=== PATIENT | female | born 1995 | race Two or more races ===

== ENCOUNTER 2018-09-13 05:30 | Emergency (ER) | payer OTHER ==
[~2018-09-13] VITALS: Ht 157.5 cm; Wt 112.2 kg
[~2018-09-13 05:30] MED LIST: CIPR500T4 PO; IBUP200C11 PO
[2018-09-13 05:32] VITALS: Ht 157.5 cm; Wt 112.2 kg
--- NOTE | 2018-09-13 06:06 | ERD ---
ER Documentation Chief Complaint Chief Complaint RIGHT EAR PAIN X1DAY HPI 23-year-old female, at EGA 9wk by LMP 07/11/18 presents to the emergency department, complaining of 1 day with severe right ear pain and back pain associ ated with fever and chills. The patient has not established care. She denies vaginal bleeding. ROS All systems reviewed and are negative except as per history of present illness. Medications Home Meds Active Scripts Acetaminophen* (Tylenol*) 325 Mg Tablet, 2 TAB PO Q6 PRN for PAIN AND OR ELEVATED TEMP, #20 TAB Prov:DIXON BROOKS MD 09/13/18 Amoxicillin* (Amoxicillin*) 500 Mg Cap, 2 CAP PO TID for 7 Days, CAP Prov:DIXON BROOKS MD 09/13/18 Ciprofloxacin Hcl* (Ciprofloxacin Hcl*) 500 Mg Tablet, 500 MG PO BID for 7 Days, TAB Prov:EMMA SHOEMAKER NP 12/23/14 Reported Medications Ibuprofen* (Advil*) 200 Mg Capsule, 200 MG PO Q6H PRN for PAIN, CAP 12/02/14 Allergies Allergies: Coded Allergies: No Known Allergy (Unverified , 12/23/14) PMhx/Soc History of Surgery: No Anesthesia Reaction: No Hx Neurological Disorder: No Hx Respiratory Disorders: No Hx Cardiac Disorders: No Hx Psychiatric Problems: No Hx Miscellaneous Medical Probl: No Hx Alcohol Use: No Hx Substance Use: No Hx Tobacco Use: No Physical Exam Vitals Vital Signs Date Temp Pulse Resp B/P (MAP) Pulse Ox O2 O2 Flow FiO2 Time Delivery Rate 09/13/18 99.9 93 19 116/61 98 05:32 (79) Physical Exam Const: Mild distress due to pain. Head: Atraumatic Eyes: Normal Conjunctiva ENT: Erythematous oropharynx, right ear with significant tympanic erythema, edema and retraction, with edema of the canal. Contralateral ear normal. Neck: Full range of motion. No meningismus. Resp: Clear to auscultation bilaterally Cardio: Regular rate and rhythm, no murmurs Abd: Soft, non tender, non distended. Normal bowel sounds Skin: No petechiae or rashes Back: No midline or flank tenderness Ext: No cyanosis, or edema Neur: Awake and alert Psych: Normal Mood and Affect Result Diagram: 09/13/18 0641 Results 24 hrs Laboratory Tests Test 09/13/18 06:41 09/13/18 07:06 09/13/18 07:14 White Blood Count 12.0 10^3/ul Red Blood Count 4.74 10^6/ul Hemoglobin 11.1 g/dl Hematocrit 35.4 % Mean Corpuscular Volume 74.7 fl Mean Corpuscular Hemoglobin 23.4 pg Mean Corpuscular 31.4 g/dl Hemoglobin Concent Red Cell Distribution Width 18.5 % Platelet Count 194 10^3/UL Mean Platelet Volume 11.1 fl Immature Granulocytes % 0.500 % Neutrophils % 80.8 % Lymphocytes % 9.1 % Monocytes % 9.2 % Eosinophils % 0.2 % Basophils % 0.2 % Nucleated Red Blood Cells % 0.0 /100WBC Immature Granulocytes # 0.060 10^3/ul Neutrophils # 9.7 10^3/ul Lymphocytes # 1.1 10^3/ul Monocytes # 1.1 10^3/ul Eosinophils # 0.0 10^3/ul Basophils # 0.0 10^3/ul Nucleated Red Blood Cells # 0.0 10^3/ul POC Beta HCG, Qualitative POSITIVE Bedside Urine pH (LAB) 7.5 Bedside Urine Protein (LAB) Negative Bedside Urine Glucose (UA) Negative Bedside Urine Ketones (LAB) Negative Bedside Urine Blood Negative Bedside Urine Nitrite (LAB) Negative Bedside Urine Leukocyte Esterase Negative (L Current Medications Medications Dose Sig/Adrián Start Time Status Last (Trade) Ordered Route PRN Stop Time Admin Dose Reason Admin Sodium 500 ml @ Q1H STAT 09/13/18 DC 09/13/18 Chloride 500 mls/hr IV 06:16 06:44 09/13/18 07:15 650 mg ONCE STAT 09/13/18 DC 09/13/18 Acetaminophen PO 06:16 06:44 (Tylenol 09/13/18 06:21 Tab) Morphine 0.5 mg ONCE STAT 09/13/18 DC 09/13/18 Sulfate IV 06:16 07:11 (morphine) 09/13/18 06:21 Ceftriaxone 50 ml @ ONCE ONCE 09/13/18 DC 09/13/18 Sodium 100 mls/hr IVPB 06:30 06:44 09/13/18 06:59 Radiology Main Line: [phone] DIAGNOSTIC IMAGING REPORT Patient: RENO ROWAN : 1995 Age: 23 Sex: F MR #: [id number] DOS: 09/13/18 0616 Ordering MD: DIXON BROOKS MD Location: [facility] Room/Bed: PROCEDURE: US Pelvis. CLINICAL INDICATION: Pelvic and back pain. TECHNIQUE: Multiple sonographic images of the pelvis were obtained utilizing a transabdominal and endovaginal technique. The images were reviewed on a PACS workstation. COMPARISON: None FINDINGS: There is a single live intrauterine gestational with a heart rate of 150 bpm. The placenta is posterior. There is a pole with a crown-rump length of 8.0 cm. There is an estimated gestational age of 14 weeks 0 days. No suspicious adnexal lesions are seen. IMPRESSION: Single live intrauterine gestational , as described above. RPTAT: HAP Admit-r Pal, Physician Date Time Electronically viewed and signed by Admit-r Tanner, Physician on 09/13/2018 07:24 AP/ CC: DIXON BROOKS MD [id number] Procedures/MDM Vital signs stable, differential diagnosis include but not limited to: infection bacterial/viral/fungal. Tonsillitis, eustachian dysfunction, allergies, foreign body, cholesteatoma. Less likely mastoiditis, malignant otitis, meningitis. Physical examination and clinical presentation consistent most likely with right otitis media. During the ED course the patient remained stable, no new complaints. Clinical impression discussed with the patient who agrees with management. The patient is stable to be treated outpatient and will be discharged home with a Rx for antibiotics and acetaminophen. Some side effects of prescribed medications (headache, rash, nausea, vomiting, diarrhea, drowsiness, bleeding, hypertension, interactions with other medications) were reviewed. The patient was instructed to follow up with the primary care provider in the next 48h. If symptoms persist, worsen or new symptoms develop, then patient should return to the ED immediately. Disclaimer: Inadvertent spelling and grammatical errors are likely due to EHR/dictation software use and do not reflect on the overall quality of patient care. Also, please note that the electronic time recorded on this note does not necessarily reflect the actual time of the patient encounter. Departure Diagnosis: Primary Impression: Right otitis media with effusion Additional Impression: with 14 completed weeks gestation Condition: Stable Additional Instructions: Muchas mary kate por [facility] para olmos servicio. Esperamos que en olmos visita a la marisol de emergencia olmos problema medico haya sido solucionado y que se sienta mucho mejor. Para estar seguros que olmos mejoria sigue en proceso, le pedimos el favor de hacer farheen raghu de seguimiento medico con olmos doctor primario en los proximos 2-4 donaldson. Lleve con usted estos documentos y las medicinas recetadas. Si javier sintomas empeoran, NO SE ESPERE, por favor regrese a marisol de emergencia INMEDIATAMENTE. En geetha que usted no tenga un mdico de atencin primaria: Llame al mdico o clnica comunitaria de referencia que aparece abajo tarsha las horas de consultorio para hacer farheen raghu para que le vean. CLINICAS: [facility] [phone] [facility] [phone] [facility] [phone] [facility] [phone] [facility] [phone] [address] [facility]. [phone] MD Sep 13, 2018 06:06
[2018-09-13] MEDS ORDERED: ACETAMINOPHEN 325 MG TAB PO STA (06:16)
[2018-09-13] MEDS ORDERED: morphine 4 MG/ML VIAL IV STA (06:16)
[2018-09-13] MEDS ORDERED: SOD CHLORIDE 0.9% 500 ML IV STA (06:16)
[2018-09-13] MEDS ORDERED: CEFTRIAXONE 1 GM/50 ML (PMX) 50 ML IVPB ONE (06:30)
[2018-09-13] MEDS ORDERED: ACET325T33 PO (07:52)
[2018-09-13] MEDS ORDERED: AMOX500C2 PO (07:52)
[2018-09-13 08:07] VITALS: BP 114/68; PULSE 81; RESP 18
== END 2018-09-13 08:08 | disposition home or self-care (01) ==
LOC: FTE 05:30
DX: O99.89 Other specified diseases and conditions complicating pregnancy, childbirth and the puerperium (principal); H65.91 Unspecified nonsuppurative otitis media, right ear; Z3A.14 14 weeks gestation of pregnancy
CPT/HCPCS: 36415; 76801; 81003; 81025; 84702; 85025; 96374; 96375; J0696; J2270; J7040; Z7502; Z7610

== ENCOUNTER 2019-03-07 11:49 | Inpatient (IN) | payer OTHER ==
[~2019-03-07] VITALS: Ht 160 cm; Wt 118.4 kg
[~2019-03-07 11:49] MED LIST changes: +ACET325T33 PO; +AMOX500C2 PO; +PNV11TAB PO
[2019-03-07 12:08] VITALS: Ht 160 cm; Wt 118.4 kg
[2019-03-07 12:09] VITALS: BP 129/62; PULSE 75; RESP 19
[2019-03-07] MEDS ORDERED: MISOPROSTOL 200 MCG TAB PR PRN (14:30)
[2019-03-07] MEDS ORDERED: OXYTOCIN 30 UNITS/LR 500 ML IV PRN (14:30)
[2019-03-07] MEDS ORDERED: CARBOPROST 250 MCG INJ IM PRN (14:30)
[2019-03-07] MEDS ORDERED: LIDOCAINE 1% (MPF) 30 ML INJ INJ PRN (14:30)
[2019-03-07] MEDS ORDERED: AMPICILLIN 2 GM/NS (PMX) 100 ML IV ONE (14:30)
[2019-03-07] MEDS ORDERED: OXYTOCIN 30 UNITS/LR 500 ML IV SCH ×3 (14:30)
[2019-03-07] MEDS ORDERED: BUTORPHANOL 2 MG INJ IV PRN (14:30)
[2019-03-07] MEDS ORDERED: METHYLERGONOVINE 0.2 MG INJ IM PRN (14:30)
[2019-03-07] MEDS ORDERED: IBUPROFEN 600 MG TAB PO PRN (14:30)
[2019-03-07] MEDS: LACTATED RINGER'S 1,000 ML IV SCH (14:43)
[2019-03-07] MEDS ORDERED: LACTATED RINGER'S 1,000 ML IV PRN (18:25)
[2019-03-07] MEDS ORDERED: NALOXONE (0.4 MG/ML) INJ IV PRN (18:30)
[2019-03-07] MEDS ORDERED: DIPHENHYDRAMINE 50 MG INJ IV PRN (18:30)
[2019-03-07] MEDS ORDERED: FENTAnyl 2MCG/ML-ROPIV 0.2% 100 ML BAG EPI SCH (18:30)
[2019-03-07] MEDS ORDERED: AMPICILLIN 1 GM/NS (PMX) 50 ML IV SCH (18:30)
[2019-03-07] MEDS ORDERED: ONDANSETRON 4 MG INJ IV PRN (18:30)
[2019-03-08] MEDS: LACTATED RINGER'S 1,000 ML IV SCH (00:20)
[2019-03-08] MEDS ORDERED: MINERAL OIL LIGHT 10 ML VIAL TOP PRN (02:30)
[2019-03-08] MEDS ORDERED: MINERAL OIL LIGHT 10 ML VIAL TOP ONE (02:30)
[2019-03-08] MEDS ORDERED: OXYTOCIN 30 UNITS/LR 500 ML IV SCH (04:17)
[2019-03-08] MEDS ORDERED: BENZOCAINE 20% 56 ML SPRAY TOP PRN (04:30)
[2019-03-08] MEDS ORDERED: METHYLERGONOVINE 0.2 MG INJ IM PRN (04:30)
[2019-03-08] MEDS ORDERED: ONDANSETRON 4 MG INJ IV PRN (04:30)
[2019-03-08] MEDS ORDERED: WITCH HAZEL/GLYCERIN PAD PR PRN (04:30)
[2019-03-08] MEDS ORDERED: LANOLIN HPA 1 PKT TOP PRN (04:30)
[2019-03-08] MEDS ORDERED: OXYTOCIN 30 UNITS/LR 500 ML IV PRN (04:30)
[2019-03-08] MEDS ORDERED: ACETAMINOPHEN 325 MG TAB PO PRN ×2 (04:30)
[2019-03-08] MEDS ORDERED: DIBUCAINE 1% 30 GM OINT TOP PRN (04:30)
[2019-03-08] MEDS ORDERED: SENNA/DOCUSATE NA (8.6MG/50MG) TAB PO PRN (04:30)
[2019-03-08] MEDS ORDERED: MAGNESIUM HYDROXIDE 30ML CUP PO PRN (04:30)
[2019-03-08] MEDS ORDERED: MISOPROSTOL 200 MCG TAB PR PRN (04:30)
[2019-03-08] MEDS ORDERED: CARBOPROST 250 MCG INJ IM PRN (04:30)
[2019-03-08 05:30] VITALS: BP 135/75; PULSE 56; RESP 18
[2019-03-08] MEDS: IBUPROFEN 600 MG TAB PO PRN ×2 (06:52→15:46)
[2019-03-08 08:15] VITALS: BP 125/72; PULSE 59; RESP 18
[2019-03-08] MEDS: LACTATED RINGER'S 1,000 ML IV* SCH ×3 (08:16→20:17)
[2019-03-08 11:40] VITALS: BP 133/86; PULSE 48; RESP 18
[2019-03-08 15:46] VITALS: RESP 18
[2019-03-08 16:00] VITALS: BP 129/66; PULSE 63; RESP 18
[2019-03-08 19:45] VITALS: BP 125/69; PULSE 79; RESP 19
[2019-03-09 03:50] VITALS: BP 118/56; PULSE 63; RESP 18
[2019-03-09] MEDS: LACTATED RINGER'S 1,000 ML IV* SCH (04:17)
[2019-03-09 08:00] VITALS: BP 113/69; PULSE 57; RESP 16
[2019-03-09] MEDS: IBUPROFEN 600 MG TAB PO PRN (09:11)
[2019-03-09 15:30] VITALS: BP 120/62; PULSE 58; RESP 18
== END 2019-03-09 18:17 | disposition home or self-care (01) | DRG 807 ==
LOC: OBT 11:49 → L-D 11:50 → OBT 14:27 → L-D 14:28 → PP1 03-08 05:25
PROVIDERS: ADMIT Specialist; ATTEND Specialist
PROC: 4A1HXCZ Monitoring of Products of Conception, Cardiac Rate, External Approach (ICD-10-PCS; 2019-03-07)
PROC: 10E0XZZ Delivery of Products of Conception, External Approach (ICD-10-PCS; principal; 2019-03-08)
DX: O36.8130 Decreased fetal movements, third trimester, not applicable or unspecified (principal); Z37.0 Single live birth; Z3A.38 38 weeks gestation of pregnancy
CPT/HCPCS: 62322; 76818; 85025; 85610; 85730; 86592; 86850; 86900; 86901; 87340; 99464; G0463; J1200; J2590; J3010; J7120